=== PATIENT | male | born 1965 ===

== ENCOUNTER 2023-05-18 07:24 | Day surgery (SDC) | payer OTHER ==
[2023-05-18] MEDS ORDERED: Midazolam 1 MG/ML 2 ML SDV ONE (07:40)
[2023-05-18] MEDS ORDERED: Midazolam 1 MG/ML 2 ML SDV IV ONE (07:40)
[2023-05-18] MEDS ORDERED: fentaNYL 100 MCG/2 ML SDV IV ONE (07:40)
[2023-05-18] MEDS ORDERED: fentaNYL 100 MCG/2 ML SDV ONE (07:40)
[2023-05-18] MEDS: Dextrose 5%-0.45% NaCl 1,000 ML IV SCH (08:00)
[2023-05-18] MEDS: fentaNYL 100 MCG/2 ML SDV IV ONE ×2 (08:57)
[2023-05-18] MEDS: Midazolam 1 MG/ML 2 ML SDV IV ONE ×6 (08:58→09:05)
== END 2023-05-18 10:43 | disposition home or self-care (01) ==
LOC: DL.ENDO 07:24
PROVIDERS: ATTEND Internal Medicine Gastroenterology
DX: Z12.11 Encounter for screening for malignant neoplasm of colon (principal); I25.10 Atherosclerotic heart disease of native coronary artery without angina pectoris; E78.00 Pure hypercholesterolemia, unspecified; Z98.890 Other specified postprocedural states; E66.09 Other obesity due to excess calories; Z79.82 Long term (current) use of aspirin; Z83.79 Family history of other diseases of the digestive system; Z68.33 Body mass index [BMI] 33.0-33.9, adult; R79.89 Other specified abnormal findings of blood chemistry
CPT/HCPCS: J2250; J3010; J7042